=== PATIENT | female | born 1985 | race African-American/Black ===

== ENCOUNTER 2020-03-17 17:26 | Emergency (ER) | payer OTHER, SELFPAY ==
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
[2020-03-17 17:46] VITALS: BP 129/87; PULSE 72; RESP 18; TEMP 36.3; O2SAT 99
[2020-03-17] MEDS: KETOROLAC (*BKC) 60 MG/2 ML VIAL IM (18:46)
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
== END 2020-03-17 20:05 | disposition home or self-care (01) ==
PROVIDERS: Emergency Provider Emergency Medicine
DX: S16.1XXA Strain of muscle, fascia and tendon at neck level, initial encounter (principal); V43.62XA Car passenger injured in collision with other type car in traffic accident, initial encounter; J45.909 Unspecified asthma, uncomplicated
CPT/HCPCS: 72125; 73030; 96372; 99284; J1885

== ENCOUNTER 2020-10-25 14:29 | Emergency (ER) | payer SELFPAY ==
[2020-10-25 14:37] VITALS: BP 102/85; PULSE 70; RESP 16; TEMP 36.8; O2SAT 100
--- NOTE | 2020-10-25 15:04 | ED.URI ---
HPI - URI/Sore Throat General Chief Complaint: Upper Respiratory Infection Stated Complaint: allen/sinus issues/diarrhea History of Present Illness HPI Narrative: Patient is a 35-year-old female who presents complaining of sore throat, congestion, rhinorrhea, headache and ear pain. She reports doing rapid Covid at work and was negative at the time. Patient reports symptoms x1 day. Patient reports vaccinated x2 for Covid. She denies fever or body aches at this time. Patient denies significant medical history. MD elicited complaint: sore throat Related Data Allergies Allergy/AdvReac Type Severity Reaction Status Date / Time No Known Allergies Allergy Unknown Unverified 10/25/20 14:54 Review of Systems Review of Systems: CONSTITUTIONAL: Denies fever, chills, or sweats. EYES: Denies visual changes, redness, or discharge. ENT: Reports sore throat and congestion, rhinorrhea and otalgia CARDIOVASCULAR: Denies chest pain, palpitations, or edema. RESPIRATORY: Denies cough or dyspnea. GASTROINTESTINAL: Denies abdominal pain, nausea, vomiting, or diarrhea. GENITOURINARY: Denies dysuria or hematuria. SKIN: Denies rash or itching. MUSCULOSKELETAL: Denies back pain, joint pain, or myalgia. NEUROLOGIC: Reports headache, denies numbness, dizziness, or weakness. PSYCHIATRIC: Denies anxiety or depression. [facility] Past Medical History Medical History (Updated 10/25/20 @ 15:31 by CARMELLA Briseno) History of asthma Social History Social History (Updated 10/25/20 @ 15:57 by CARMELLA Briseno) Smoking status: Current some day smoker Alcohol intake: never Substance use: never Comments At the time of signature, I have reviewed and agree with nursing past medical, surgical, social, and family history unless otherwise noted. Please see nursing chart for further information. There is no relevant family history pertinent to the presenting complaint. Exam Narrative: GENERAL: Well-appearing, well-nourished, and in no acute distress. HEAD: Normocephalic, atraumatic. EYES: EOMI. No redness or drainage. Conjunctiva are normal. ENT: Mucous membranes pink and moist. Nares clear. No rhinorrhea. TMs normal bilaterally. Throat with moderate erythema and edema. Uvula midline. NECK: AROM. Supple. No lymphadenopathy. CHEST: No respiratory distress. HEART: Regular rate and rhythm. EXTREMITIES: Normal range of motion. No edema. SKIN: Warm, dry, no rash. NEURO: No focal deficits. Alert and oriented x3. Gait steady. PSYCH: Normal affect. No signs of depression or anxiety. Course Vital Signs Vital signs: Vital Signs Temperature 36.8 C 10/25/20 14:37 Pulse Rate 70 10/25/20 14:37 Respiratory Rate 16 10/25/20 14:37 Blood Pressure 102/85 10/25/20 14:37 Pulse Oximetry 100 10/25/20 14:37 Temperature 36.8 C 10/25/20 14:37 Pulse Rate 70 10/25/20 14:37 Respiratory Rate 16 10/25/20 14:37 Blood Pressure 102/85 10/25/20 14:37 Pulse Oximetry 100 10/25/20 14:37 Reviewed MDM - URI/Sore Throat MDM Narrative Medical decision making narrative: Patient's rapid strep is negative. Patient will decline PCR testing at this time. Discussed with patient most likely viral illness. Patient is stable for discharge to home with outpatient follow-up as needed. Differential Diagnosis Differential diagnosis: Likely upper respiratory infection, otitis media, sinusitis, viral infection, pharyngitis and other (Covid, tonsillitis) Critical Care Time Critical Care Time Critical Care Time: No Discharge Plan Discharge Clinical Impression: Pharyngitis Qualifiers: Pharyngitis/tonsillitis etiology: unspecified etiology Qualified Code(s): J02.9 - Acute pharyngitis, unspecified Patient Disposition: Home, Self-Care Condition: Stable Instructions: Pharyngitis (ED) Additional Instructions: Stay well-hydrated. Take Tylenol or ibuprofen for pain or fever. Take prednisone as directed. Warm salt water rinses. Foll
== END 2020-10-25 15:40 | disposition home or self-care (01) ==
PROVIDERS: Emergency Provider Nurse Practitioner
DX: J02.9 Acute pharyngitis, unspecified (principal); J45.909 Unspecified asthma, uncomplicated; F17.200 Nicotine dependence, unspecified, uncomplicated
CPT/HCPCS: 87081; 87880; 99213; G0463

== ENCOUNTER 2020-11-23 14:59 | Emergency (ER) | payer SELFPAY ==
[2020-11-23 15:22] VITALS: BP 115/82; PULSE 119; RESP 16; TEMP 36.7; O2SAT 98
[2020-11-23 15:38] LABS: Basophils Absolute Auto 0.1 K/mm3 (0.0-0.1); Basophils Percent Auto 0.8 % (0.2-1.2); Eosinophils Absolute Auto 0.2 K/mm3 (0-0.3); Hematocrit 36.5 % (37.0-47.0); Hemoglobin 12.5 g/dL (12.0-15.0); Immature Granulocyte Absolute 0.02 K/mm3 (0.00-0.031); Immature Granulocyte Percent A 0.3 % (0-0.5); Lymphocytes Absolute Auto 2.23 K/mm3 (0.9-3.2); Lymphocytes Percent Auto 30.3 % (18.3-44.2); Mean Corpuscular HGB Conc 34.2 g/dl (32-36); Mean Corpuscular Hemoglobin 30.7 pg (26-34); Mean Corpuscular Volume 89.7 fl (80-100); Mean Platelet Volume 11.5 fl (7.4-10.4); Monocytes Absolute Auto 0.4 K/mm3 (0.1-0.6); Neutrophils Absolute Auto 4.5 K/mm3 (1.3-6.7); Neutrophils Percent Auto 60.6 % (45.5-73.1); Platelet Count Result 206 k/mm3 (150-375); Red Blood Count 4.07 M/mm3 (4.2-5.4); White Blood Count 7.4 K/mm3 (4.5-10.0)
[2020-11-23 16:10] LABS: Alanine Aminotransferase 13 U/L (4-35); Albumin Level 4.3 g/dL (3.5-5.1); Alkaline Phosphatase 52 U/L (38-126); Anion Gap 3 mmol/L (8-16); Aspartate Amino Transferase 20 U/L (14-36); Bilirubin,Total 0.1 mg/dL (0.2-1.3); Blood Urea Nitrogen 14 mg/dL (7-17); Calcium 9.2 mg/dL (8.4-10.2); Carbon Dioxide 31 mmol/L (22-30); Chloride 104 mmol/L (98-107); Estimated CRCL calculation 75 ml/min; Estimated Glomerular Filt Rate > 60; Glucose 81 mg/dL (65-110); Lipase 57 U/L (23-300); Potassium 3.8 mmol/L (3.4-5.0); Sodium 138 mmol/L (137-145)
[2020-11-23 16:26] LABS: Add Urine Microscopic? YES; Appearance Urine Clear (Clear); Bacteria Urine Trace /hpf; Bilirubin Urine Negative (Negative); Blood Urine 3+ (Negative); Color Urine Straw (Yellow); Glucose Urine UA Negative (Negative); Ketones Urine Negative (Negative); Leukocyte Esterase Ur 3+ LEU/UL (Negative); Nitrate Urine Negative (Negative); Protein Urine Negative (Negative); Specific Grav Ur 1.012 (1.001-1.035); Squamous Epithelial Cell Urine Moderate /hpf (Few); Urobilinogen Urine Negative mg/dL (<2.0)
[2020-11-23 18:14] VITALS: BP 114/83; PULSE 76; RESP 14; O2SAT 98
[2020-11-23 19:25] VITALS: BP 124/89; PULSE 74; RESP 18; O2SAT 100
--- NOTE | 2020-11-23 19:25 | PC.NURSE ---
Assumed care of pt at this time time. Pt alert and upright on stretcher. Pt dissatisfied about wait time. Pt states if they didn't take my blood already out front, I would've gone to urgent care . This RN explained to pt about recent high pt loads and that pts are taken back to rooms based on acuity. This RN also informed pt that CASEY Tapia had signed up for her and would be in the room shorty to talk to pt. Pt verbalized understanding.
--- NOTE | 2020-11-23 19:52 | PC.NURSE ---
pt to us desk and verbalized that she is leaving and walked out. pt refused to stop and sign ama paperwork when nadine oneill attempted to stop her.
--- NOTE | 2020-11-23 22:35 | ED.GENADULT ---
HPI - General Adult General Chief complaint: Vaginal Bleeding <Fozia Rees PA-C - Last Filed: 11/23/20 22:38> Stated complaint: vag. bleeding <Fozia Rees PA-C - Last Filed: 11/23/20 22:38> Time Seen by Provider: 11/23/20 19:13 <Fozia Rees PA-C - Last Filed: 11/23/20 22:38> Source: patient <Fozia Rees PA-C - Last Filed: 11/23/20 22:38> Mode of arrival: ambulatory <Fozia Rees PA-C - Last Filed: 11/23/20 22:38> Limitations: no limitations <Fozia Rees PA-C - Last Filed: 11/23/20 22:38> History of Present Illness HPI narrative: Patient presents to emergency department complaining of swelling and discomfort to her vagina over the past 2 weeks. Patient has not seen her [employer]. Patient is not sure if she has concern for STDs. Patient reports Chlamydia in high school. Patient denies any fevers or chills. Patient reports having some nausea earlier today. Patient denies any vomiting. <Fozia Rees PA-C - Last Filed: 11/23/20 22:38> Related Data Allergies/adverse reactions: Allergies Allergy/AdvReac Type Severity Reaction Status Date / Time No Known Allergies Allergy Unknown Unverified 10/25/20 14:54 <Fozia Rees PA-C - Last Filed: 11/23/20 22:38> Review of Systems Review of Systems: CONSTITUTIONAL: Denies fever, chills, or sweats. EYES: Denies visual changes, redness, or discharge. ENT: Denies rhinorrhea, congestion, sore throat, or otalgia. CARDIOVASCULAR: Denies chest pain, palpitations, or edema. RESPIRATORY: Denies cough or dyspnea. GASTROINTESTINAL: Denies abdominal pain, nausea, vomiting, or diarrhea. GENITOURINARY: Reports vaginal complaint denies dysuria or hematuria. SKIN: Denies rash or itching. MUSCULOSKELETAL: Denies back pain, joint pain, or myalgia. NEUROLOGIC: Denies headache, numbness, dizziness, or weakness. PSYCHIATRIC: Denies anxiety or depression. <Fozia Rees PA-C - Last Filed: 11/23/20 22:38> [facility] Past Medical History Medical History: Medical History (Updated 11/24/20 @ 00:01 by Katherine Dove) History of asthma <Fozia Rees PA-C - Last Filed: 11/23/20 22:38> Social History Social History: Social History (Updated 10/25/20 @ 15:57 by Leti Mora [facility]) Smoking status: Current some day smoker Alcohol intake: never Substance use: never <Fozia Rees PA-C - Last Filed: 11/23/20 22:38> Exam Narrative: GENERAL: Well-appearing, well-nourished, and in no acute distress. HEAD: Normocephalic, atraumatic. EYES: PERRLA and EOMI. CHEST: Clear to auscultation. No respiratory distress. No wheezes rales or rhonchi HEART: Regular rate and rhythm. No murmur heard. Normal peripheral pulses. EXTREMITIES: Normal range of motion. No edema. SKIN: Warm, dry, no rash. NEURO: No focal deficits. Alert and oriented x3. PSYCH: Normal mood and affect. <Fozia Rees PA-C - Last Filed: 11/23/20 22:38> Course Vital Signs Vital signs: Vital Signs Temperature 36.7 C 11/23/20 15:22 Pulse Rate 119 H 11/23/20 15:22 Respiratory Rate 16 11/23/20 15:22 Blood Pressure 115/82 11/23/20 15:22 Pulse Oximetry 98 11/23/20 15:22 Temperature 36.7 C 11/23/20 15:22 Pulse Rate 74 11/23/20 19:25 Respiratory Rate 18 11/23/20 19:25 Blood Pressure 124/89 11/23/20 19:25 Pulse Oximetry 100 11/23/20 19:25 <Fozia Rees PA-C - Last Filed: 11/23/20 22:38> Medical Decision Making MDM Narrative Medical decision making narrative: Patient eloped ED before pelvic exam could be completed. Patient told nurse it was due to wait time. Patient refused to sign AMA forms. Not sure what patient diagnosis was. <Fozia Rees PA-C - Last Filed: 11/23/20 22:38> Vital Signs Vital Signs: Vital Signs Temperature 36.7 C 11/23/20 15:22 Pulse Rate 119 H 11/23/20 15:22 Respiratory Rate 16 11/23/20 15:22 Blood Pressure 115/82 11/23/20 15:22 Pulse Oximetry
== END 2020-11-23 19:56 | disposition left against medical advice (07) ==
PROVIDERS: Emergency Provider General Practice
DX: N76.0 Acute vaginitis (principal); J45.909 Unspecified asthma, uncomplicated
CPT/HCPCS: 36415; 80053; 81001; 81025; 83690; 85025; 87077; 87086; 87088; 99284

== ENCOUNTER 2021-08-12 08:08 | Emergency (ER) | payer SELFPAY ==
[2021-08-12 08:14] VITALS: BP 114/73; PULSE 83; RESP 16; TEMP 36.6; O2SAT 100
[2021-08-12 09:17] LABS: Influenza A QL RT-PCR Negative (Negative); Influenza B QL RT-PCR Negative (Negative); SARS-CoV-2 RNA PCR Negative
--- NOTE | 2021-08-12 10:23 | ED.URI ---
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 Patient woke up this morning with sore throat, body aches, nasal congestion, postnasal discharge, headache, coughing. Related Data Allergies Allergy/AdvReac Type Severity Reaction Status Date / Time No Known Allergies Allergy Unknown Verified 08/12/21 08:12 Review of Systems Review of Systems: All systems reviewed & are unremarkable except as noted in HPI and below PMFSH Past Medical History Medical History History of asthma Social History Social History Smoking status: Current some day smoker Alcohol intake: never Substance use: never Exam Narrative: General appearance: Well-developed, well-nourished, does not look in pain or distress, intermittent coughing, no significant other at the bedside Skin: Normal color Eyes: Clear conjunctiva ENT: Oropharynx normal Neck: nontender Chest and respiratory: Airway patent, no respiratory distress, no accessory muscle use Heart: Regular rate/rhythm Neurologic: Alert and oriented ?3, Course Course Emergency Course: Work-up showed that the patient is negative for COVID and influenza. Upper respiratory viral infection is my diagnosis, discharged on Atrovent nasal spray and Tessalon, and to be off work for the next 2 days. Vital Signs Vital signs: Vital Signs Temperature 36.6 C 08/12/21 08:14 Pulse Rate 83 08/12/21 08:14 Respiratory Rate 16 08/12/21 08:14 Blood Pressure 114/73 08/12/21 08:14 Pulse Oximetry 100 08/12/21 08:14 Temperature 36.6 C 08/12/21 08:14 Pulse Rate 83 08/12/21 08:14 Respiratory Rate 16 08/12/21 08:14 Blood Pressure 114/73 08/12/21 08:14 Pulse Oximetry 100 08/12/21 08:14 MDM - URI/Sore Throat Lab Data Labs: Lab Results 08/12/21 Range/Units 08:30 Influenza A (RT-PCR) Negative (Negative) Influenza B (RT-PCR) Negative (Negative) SARS-CoV-2 RNA (RT-PCR) Negative Critical Care Time Critical Care Time Critical Care Time: No Discharge Plan Discharge Clinical Impression: Upper respiratory infection Patient Disposition: Home, Self-Care Condition: Stable Instructions: Antibiotic Form, Cold Symptoms (ED) Additional Instructions: Return if symptoms are worsening , call your family physician for appointment, take Tylenol, ibuprofen as as needed for aches and pain, continue home medications. Prescriptions: New benzonatate 200 mg capsule 200 mg PO TID PRN (Reason: cough) Qty: 30 0RF Atrovent HFA 17 mcg/actuation HFA aerosol inhaler 2 puff inhalation QID 7 Days Qty: 12.9 0RF No Action prednisone 20 mg tablet 40 mg PO DAILY 5 Days Qty: 10 0RF Follow-up/Referrals: PHYSICIAN,BIOMETRIC SCREENER [Primary Care Provider] - Justyn Zamora MD [Physician] - 08/15/21 Stand Alone Forms: Work/School Release IP
[2021-08-12 11:13] VITALS: PULSE 67; RESP 18; O2SAT 98
== END 2021-08-12 11:18 | disposition home or self-care (01) ==
PROVIDERS: Emergency Provider Emergency Medicine
DX: J06.9 Acute upper respiratory infection, unspecified (principal); F17.210 Nicotine dependence, cigarettes, uncomplicated; Z20.822 Contact with and (suspected) exposure to COVID-19
CPT/HCPCS: 87502; 99283; C9803; U0003; U0005

== ENCOUNTER 2021-12-03 15:01 | Emergency (ER) | payer SELFPAY ==
[2021-12-03 15:12] VITALS: BP 121/81; PULSE 88; RESP 16; TEMP 36.7; O2SAT 99
--- NOTE | 2021-12-03 15:33 | ED.GENADULT ---
HPI - General Adult General Chief complaint: Nausea/Vomiting/Diarrhea Stated complaint: n/v/d Time Seen by Provider: 12/03/21 15:33 Source: patient Mode of arrival: ambulatory Limitations: no limitations History of Present Illness HPI narrative: 36-year-old female patient presents to the [facility] with complaints of headache, nausea, vomiting and diarrhea. Patient states she has had chills and just overall not feeling well. Patient states symptoms abruptly started today. Patient denies getting any flu or COVID shot. Patient denies chances of being . Patient denies any fevers that she is aware of. Related Data Allergies Allergy/AdvReac Type Severity Reaction Status Date / Time No Known Allergies Allergy Unknown Verified 12/03/21 15:11 Review of Systems Review of Systems: CONSTITUTIONAL: Positive fever, chills, denies sweats. EYES: Denies visual changes, redness, or discharge. ENT: Positive rhinorrhea, congestion, denies sore throat, or otalgia. CARDIOVASCULAR: Denies chest pain, palpitations, or edema. RESPIRATORY: Denies cough or dyspnea. GASTROINTESTINAL: Denies abdominal pain, positive nausea, vomiting, or diarrhea. GENITOURINARY: Denies dysuria or hematuria. SKIN: Denies rash or itching. MUSCULOSKELETAL: Denies back pain, joint pain, or myalgia. NEUROLOGIC: Positive headache, numbness, or weakness. PSYCHIATRIC: Denies anxiety or depression. [facility] Past Medical History Medical History History of asthma Social History Social History Smoking status: Current some day smoker Alcohol intake: never Substance use: never Comments At the time of my signature I agree with nursing past medical history, surgical, social, and family history. There is no relevant family history pertinent to the presenting complaint. Exam Narrative: GENERAL: Well-appearing, well-nourished, and in no acute distress. HEAD: Normocephalic, atraumatic. EYES: PERRLA and EOMI. ENT: Nares clear, no rhinorrhea or epistaxis. Mucous membranes moist. Posterior pharynx with no erythema, tonsillar joint, exudates or lesions present. Bilateral TMs are clear with no erythema or foreign bodies in the canal. NECK: Supple. No lymphadenopathy CHEST: Clear to auscultation. No respiratory distress. Patient able to talk in clear complete sentences. HEART: Regular rate and rhythm. No murmur heard. Normal peripheral pulses. ABDOMEN: Soft, nontender, nondistended, normal active bowel sounds. EXTREMITIES: Normal range of motion. No edema. SKIN: Warm, dry, no rash. NEURO: No focal deficits. Alert and oriented x3. Course Course Level of Care: Express Care Visit Vital Signs Vital signs: Vital Signs Temperature 36.7 C 12/03/21 15:12 Pulse Rate 88 12/03/21 15:12 Respiratory Rate 16 12/03/21 15:12 Blood Pressure 121/81 12/03/21 15:12 Pulse Oximetry 99 12/03/21 15:12 Oxygen Delivery Room Air 12/03/21 15:12 Temperature 36.7 C 12/03/21 15:12 Pulse Rate 88 12/03/21 15:12 Respiratory Rate 16 12/03/21 15:12 Blood Pressure 121/81 12/03/21 15:12 Pulse Oximetry 99 12/03/21 15:12 Oxygen Delivery Room Air 12/03/21 15:12 Vital signs reviewed Medical Decision Making MDM Narrative Medical decision making narrative: Discussed with patient that she is positive for influenza A. Discussed with patient our plan of care today is to offer Tamiflu. Discussed with patient the risk versus benefit patient has decided to take the Tamiflu today. We will also give her a dose of Zofran prior to leaving to help with nausea and vomiting as well as give her a prescription for the Zofran to take home. Discussed with patient I will write her off work for the next 3 days she can return to work as long as she has been fever free for 24 hours. Patient verbalized understanding denies any other questions or concerns at this time. Danielle
[2021-12-03] MEDS: ONDANSETRON HCL ODT 4 MG TABLET PO (15:49)
== END 2021-12-03 15:53 | disposition home or self-care (01) ==
PROVIDERS: Emergency Provider Nurse Practitioner Family
DX: J10.1 Influenza due to other identified influenza virus with other respiratory manifestations (principal); K52.9 Noninfective gastroenteritis and colitis, unspecified; Z20.822 Contact with and (suspected) exposure to COVID-19
CPT/HCPCS: 87426; 87804; 99213; A9270; C9803; G0463

== ENCOUNTER 2022-10-04 11:32 | Emergency (ER) | payer BC, SELFPAY ==
--- NOTE | ~2022-10-04 | CT_ITS ---
EXAMINATION: CT abdomen pelvis w con DATE: 10/04/2022 13:59 INDICATION: Diffuse abdominal pain. Nausea and vomiting. TECHNIQUE: Computed tomography (CT) of the abdomen and pelvis was performed with 100 cc Omnipaque 350 intravenous contrast. The dose-length product was 420.46 mGy-cm. Automated exposure control and iter ative reconstruction technique were employed. COMPARISON: None. FINDINGS: There is a 1.9 x 1.3 cm cystic lesion left posterior aspect of the vaginal introitus which may represent abscess or complicated Bartholin cyst. Dependent atelectasis. Heart size normal. No significant pleural or pericardial effusion. There is a left renal cyst with layering milk of calcium measuring 1.7 cm. Gallbladder is present. The liver, sp gabriella, pancreas, adrenal glands and right kidney are unremarkable. No hydronephrosis. Nonobstructive b owel gas pattern. Bladder is decompressed limiting evaluation for wall thickening. Follicular changes of the right ovary are noted. No free fluid or free air. No significant vascular abnormality. No lym phadenopathy. No acute osseous abnormality. IMPRESSION: 1. 1.9 x 1.3 cm cystic lesion left posterior aspect of the vaginal introitus which may represent absc ess or complicated Bartholin cyst. Reviewed, dictated and finalized at location B. IMPRESSION: 1. 1.9 x 1.3 cm cystic lesion left posterior aspect of the vaginal introitus wh ich may represent abscess or complicated Bartholin cyst.
[2022-10-04 11:46] VITALS: BP 113/80; PULSE 96; RESP 16; TEMP 36.4; O2SAT 100
--- NOTE | 2022-10-04 13:06 | ED.SKABFB ---
HPI - Skin/Abscess/Foreign Bdy General Chief complaint: Skin/Abscess/Foreign Body Stated complaint: irritation/cyst? Time Seen by Provider: 10/04/22 12:02 Source: patient Mode of arrival: ambulatory Limitations: no limitations History of Present Illness HPI narrative: Patient is a 37 y/o female who presents to the ED with c/o vaginal irritation. Patient reports she noticed some discomfort with wiping after urination last night. Today, the discomfort was more prominent, worse around her vaginal opening. She states she looked with a mirror and noticed a bulge on the left side. She then presented here. Patient denies dysuria or hematuria. Denies abnormal vaginal bleeding or vaginal discharge. Denies concern for STIs. She did report having abdominal pain last night with nausea and vomiting. Reports mild persistent nausea, but denies further pain at this time. Denies diarrhea, constipation, fevers. Related Data Allergies Allergy/AdvReac Type Severity Reaction Status Date / Time No Known Allergies Allergy Unknown Verified 10/04/22 12:04 Review of Systems Review of Systems: CONSTITUTIONAL: Denies fever, chills, or sweats. CARDIOVASCULAR: Denies chest pain. RESPIRATORY: Denies dyspnea. GASTROINTESTINAL: See HPI. GENITOURINARY: See HPI. SKIN: Denies rash or itching. MUSCULOSKELETAL: Denies back pain, joint pain, or myalgia. NEUROLOGIC: Denies headache, numbness, or weakness. All systems reviewed & are unremarkable except as noted in HPI and below PMFSH Past Medical History Medical History History of asthma Social History Social History Smoking status: Current some day smoker Alcohol intake: never Substance use: never Exam Narrative: GENERAL: Well appearing, well-nourished, non-toxic, in no acute distress. HEAD: Normocephalic, atraumatic. NECK: Supple. No adenopathy, no masses. RESPIRATORY: Airway patent, respirations nonlabored. Clear to auscultation bilaterally, no rales, rhonchi, wheezing. CARDIOVASCULAR: Regular rate and rhythm without murmurs, rubs, or gallops. Radial pulses 2+ and equal bilaterally. ABDOMINAL: Soft, diffuse nonspecific tenderness to palpation, nondistended, no hepatosplenomegaly. Normoactive BS. GENITAL: Normal external genitalia. No abnormal bleeding or discharge. Tenderness along lower vaginal introitus, worse on left, small amount of bulging in area of Bartholin's gland on left side. MUSCULOSKELETAL: Moves all extremities. Strength/ROM intact without gross deformities. SKIN: Warm, dry, normal color. No rashes. NEURO: A&O X3. Speech clear. Cranial nerves II-XII grossly intact. Steady gait. No ataxic movements. PSYCHIATRIC: Appropriate mood and affect. Normal interaction. Course Vital Signs Vital signs: Vital Signs Temperature 97.6 F 10/04/22 11:46 Pulse Rate 96 10/04/22 11:46 Respiratory Rate 16 10/04/22 11:46 Blood Pressure 113/80 10/04/22 11:46 Pulse Oximetry 100 10/04/22 11:46 Oxygen Delivery Room Air 10/04/22 11:46 Temperature 97.6 F 10/04/22 11:46 Pulse Rate 91 10/04/22 15:43 Respiratory Rate 18 10/04/22 15:43 Blood Pressure 110/78 10/04/22 15:43 Pulse Oximetry 100 10/04/22 15:43 Oxygen Delivery Room Air 10/04/22 11:46 Procedures Abscess I/D bartholin's gland: Date of Incision: 10/04/22 Time of Incision: 15:40 Side (if applicable): left Sedation/analgesia: none Local Anesthetic: lidocaine 1% Amount of anesthesia used (mL): 4 Technique: incised with #11 blade and probed loculations Amount of fluid expressed (mL): 3 Irrigation: Yes Packing used?: none I&D Results: Pus and Blood Complications: other (none) MDM - Skin/Abscess/Foreign Bdy MDM Narrative Medical decision making narrative: Patient presented to ED with report of
[2022-10-04 13:14] VITALS: BP 112/70; PULSE 78; RESP 18; O2SAT 98
[2022-10-04 13:33] LABS: Basophils Absolute Auto 0.1 K/mm3 (0.0-0.1); Basophils Percent Auto 0.7 % (0.2-1.2); Eosinophils Absolute Auto 0.1 K/mm3 (0-0.3); Eosinophils Percent Auto 1.4 % (0-4.4); Hemoglobin 13.5 g/dL (12.0-15.0); Immature Granulocyte Absolute 0.03 K/mm3 (0.00-0.031); Immature Granulocyte Percent A 0.4 % (0-0.5); Lymphocytes Absolute Auto 1.93 K/mm3 (0.9-3.2); Lymphocytes Percent Auto 25.2 % (18.3-44.2); Mean Corpuscular HGB Conc 33.8 g/dl (32-36); Mean Corpuscular Hemoglobin 30.3 pg (26-34); Mean Corpuscular Volume 89.9 fl (80-100); Mean Platelet Volume 12.1 fl (7.4-10.4); Monocytes Absolute Auto 0.3 K/mm3 (0.1-0.6); Monocytes Percent Auto 4.2 % (2.6-8.5); Neutrophils Absolute Auto 5.2 K/mm3 (1.3-6.7); Neutrophils Percent Auto 68.1 % (45.5-73.1); Platelet Count Result 229 k/mm3 (150-375); Red Blood Count 4.45 M/mm3 (4.2-5.4); Red Cell Distribution Width 14.1 % (11.5-14.5); White Blood Count 7.7 K/mm3 (4.5-10.0)
[2022-10-04 13:34] LABS: Appearance Urine Clear (Clear); Bilirubin Urine Negative (Negative); Blood Urine Negative (Negative); Color Urine Yellow (Yellow); Glucose Urine UA Negative (Negative); Ketones Urine Negative (Negative); Leukocyte Esterase Ur Negative LEU/UL (Negative); Nitrate Urine Negative (Negative); Protein Urine Negative (Negative); Urobilinogen Urine 0.2 mg/dL (<2.0)
[2022-10-04 13:35] LABS: Add Urine Microscopic? NO
[2022-10-04 13:42] LABS: Alanine Aminotransferase 18 U/L (6-35); Albumin Level 4.3 g/dL (3.5-5.1); Alkaline Phosphatase 54 U/L (38-126); Anion Gap 5 mmol/L (8-16); Aspartate Amino Transferase 23 U/L (14-36); Bilirubin,Total 0.5 mg/dL (0.2-1.3); Blood Urea Nitrogen 11 mg/dL (7-17); Calcium 8.9 mg/dL (8.4-10.2); Carbon Dioxide 26 mmol/L (22-30); Chloride 107 mmol/L (98-107); Estimated CRCL calculation 96 ml/min; Estimated Glomerular Filt Rate > 60; Glucose 91 mg/dL (65-110); Sodium 138 mmol/L (137-145)
[2022-10-04 15:43] VITALS: BP 110/78; PULSE 91; RESP 18; O2SAT 100
== END 2022-10-04 16:14 | disposition home or self-care (01) ==
PROVIDERS: Emergency Provider Physician Assistant
DX: N75.1 Abscess of Bartholin's gland (principal); J45.909 Unspecified asthma, uncomplicated; F17.200 Nicotine dependence, unspecified, uncomplicated
CPT/HCPCS: 36415; 56420; 74177; 80053; 81003; 81025; 85025; 87070; 87147; 87205; 99284; Q9967

== ENCOUNTER 2023-04-04 12:16 | Emergency (ER) | payer BC, SELFPAY ==
[2023-04-04 12:18] VITALS: BP 125/84; PULSE 89; RESP 16; TEMP 37.2; O2SAT 100
[2023-04-04] MEDS: SODIUM CHLORIDE 0.9% IV 1,000 ML 999 ML IV CONT (14:03)
[2023-04-04] MEDS: ONDANSETRON INJ 4 MG/2 ML VIAL IV PUSH (14:03)
[2023-04-04] MEDS: KETOROLAC 30 MG/ML VIAL (*BKC) IV PUSH (14:03)
[2023-04-04 14:34] LABS: Influenza A QL RT-PCR Negative (Negative); Influenza B QL RT-PCR Negative (Negative); RSV RNA, RT-PCR Negative (Negative); SARS-CoV-2 RNA PCR Negative (Negative)
--- NOTE | 2023-04-04 15:07 | ED.GENADULT ---
HPI - General Adult General Chief complaint: Head Injury Stated complaint: migraine x3 days Time Seen by Provider: 04/04/23 13:05 History of Present Illness HPI narrative: patient is a 37-year-old female who presents ER with headache. Five days ago she struck her head against a first-aid kit on a wall. No LOC. She has developed progressive headache since then. She is having mild nausea. Reports fatigue. She is at work and was feeling worse so she was sent in to be seen. No fevers or chills or sweats. She does report mildly elevated temperature on arrival. No body aches. Related Data Allergies Allergy/AdvReac Type Severity Reaction Status Date / Time No Known Allergies Allergy Unknown Verified 04/04/23 13:03 Review of Systems Review of Systems: All systems reviewed & are unremarkable except as noted in HPI and below Constitutional: Constitutional: Denies chills, Reports fatigue and Denies fever(s) Eyes: Eyes: Denies change in vision and Denies photophobia ENT: Reports system reviewed and no additional complaints, except as documented Cardiovascular: Cardiovascular: Reports no additional cardiovascular complaints Respiratory: Respiratory: Reports no additional respiratory complaints Gastrointestinal: Gastrointestinal: Denies abdominal pain, Reports nausea and Denies vomiting Neurologic: Reports headache(s), Denies focal weakness and Denies numbness PMFSH Past Medical History Medical History Acne History of asthma Family History Family History (Updated 10/31/22 @ 14:59 by Renee Shin MA) Other Diabetes mellitus Social History Social History (Updated 10/31/22 @ 15:00 by Renee Shin MA) Years smoked: 1 Smoking status: Current some day smoker Tobacco type: cigarettes Alcohol intake: current Substance use: never Lack of Transportation: No Lack of Food: Never True Current Housing: I Have Housing Concerned About Future Housing: No Difficulty Paying Gas/Electric Bills: No Difficulty Paying for Meds: No Currently Unemployed: No Education: High School Diploma/GED Difficulty w/ Childcare or Family Care: No Living arrangements: with family Occupation/Education: occupation Gender identity (if verbalized by the patient): Female Sexual Orientation (if Verbalized by the Patient): Straight or Heterosexual Exam Narrative: GENERAL: Well-appearing, well-nourished, and in no acute distress. HEAD: Normocephalic, atraumatic. EYES: PERRL and EOMI. ENT: Mucous membranes moist. NECK: Supple. CHEST: Clear to auscultation. No respiratory distress. HEART: Regular rate and rhythm. Normal peripheral pulses. EXTREMITIES: Normal range of motion. No edema. NEURO: Alert and oriented x3. PSYCH: Normal mood and affect. Course Course Emergency Course: patient felt to have a concussion. Viral swab negative. Patient treated with fluids/Zofran/ Toradol and feels improved. Vital Signs Vital signs: Vital Signs Temperature 99 F 04/04/23 12:18 Pulse Rate 89 04/04/23 12:18 Respiratory Rate 16 04/04/23 12:18 Blood Pressure 125/84 04/04/23 12:18 Pulse Oximetry 100 04/04/23 12:18 Oxygen Delivery Room Air 04/04/23 12:18 Temperature 99 F 04/04/23 12:18 Pulse Rate 89 04/04/23 12:18 Respiratory Rate 16 04/04/23 12:18 Blood Pressure 125/84 04/04/23 12:18 Pulse Oximetry 100 04/04/23 12:18 Oxygen Delivery Room Air 04/04/23 12:18 Medical Decision Making Vital Signs Vital Signs: Vital Signs Temperature 99 F 04/04/23 12:18 Pulse Rate 89 04/04/23 12:18 Respiratory Rate 16 04/04/23 12:18 Blood Pressure 125/84 04/04/23 12:18 Pulse Oximetry 100 04/04/23 12:18 Oxygen Delivery Room Air 04/04/23 12:18 Temperature 99 F 04/04/23 12:18 Pulse Rate 89 04/04/23 12:18 Respiratory Rate 16 04/04/23 12:18 Blood Pressure 125/84 04/04/23 12:18 Pulse Oxime
== END 2023-04-04 15:58 | disposition home or self-care (01) ==
PROVIDERS: Emergency Provider Emergency Medicine
DX: S09.90XA Unspecified injury of head, initial encounter (principal); Z20.822 Contact with and (suspected) exposure to COVID-19; F17.210 Nicotine dependence, cigarettes, uncomplicated; W22.09XA Striking against other stationary object, initial encounter
CPT/HCPCS: 87637; 96361; 96374; 96375; 99284; J1885; J2405; J7030

== ENCOUNTER 2024-04-02 11:11 | Emergency (ER) | payer BC, SELFPAY ==
[2024-04-02 11:23] VITALS: BP 111/63; PULSE 90; RESP 18; TEMP 36.6; O2SAT 100
--- NOTE | 2024-04-02 11:35 | ED.URI ---
HPI - URI/Sore Throat General Chief Complaint: Upper Respiratory Infection Stated Complaint: FEVER/CONGESTION/BODY ACHES Time Seen by Provider: 04/02/24 11:36 Source: patient Mode of arrival: ambulatory Limitations: no limitations History of Present Illness HPI Narrative: 38-year-old female presents with complaint of fatigue, body aches, fever, cough, congestion for 3 days. Denies nausea vomiting diarrhea. Patient reports fever this morning. Sent home from work. Has been taking Mucinex day and night for symptoms. All systems reviewed and negative except as noted above. Related Data Home Medications ?Medication ?Instructions ?Recorded ?Confirmed ?Last Taken ?Type No Home Medications 04/02/24 04/02/24 Unknown History Allergies Allergy/AdvReac Type Severity Reaction Status Date / Time No Known Allergies Allergy Unknown Verified 04/02/24 11:27 Review of Systems Review of Systems: CONSTITUTIONAL: Reports fever, chills, or sweats. EYES: Denies visual changes, redness, or discharge. ENT: Reports rhinorrhea, congestion. Denies sore throat, or otalgia. CARDIOVASCULAR: Denies chest pain, palpitations, or edema. RESPIRATORY: Reports cough. Denies dyspnea. GASTROINTESTINAL: Denies abdominal pain, nausea, vomiting, or diarrhea. GENITOURINARY: Denies dysuria or hematuria. SKIN: Denies rash or itching. MUSCULOSKELETAL: Denies back pain, joint pain, or myalgia. NEUROLOGIC: Denies headache, numbness, or weakness. PSYCHIATRIC: Denies anxiety or depression. All other systems reviewed are negative, except as documented in HPI. [facility] Past Medical History Medical History Acne History of asthma Family History Family History (Updated 10/31/22 @ 14:59 by Renee Shin MA) Other Diabetes mellitus Social History Social History (Updated 10/31/22 @ 15:00 by Renee Shin MA) Years smoked: 1 Smoking status: Current some day smoker Tobacco type: cigarettes Alcohol intake: current Substance use: never Lack of Transportation: No Lack of Food: Never True Current Housing: I Have Housing Concerned About Future Housing: No Difficulty Paying Gas/Electric Bills: No Difficulty Paying for Meds: No Currently Unemployed: No Education: High School Diploma/GED Difficulty w/ Childcare or Family Care: No Living arrangements: with family Occupation/Education: occupation Gender identity (if verbalized by the patient): Female Sexual Orientation (if Verbalized by the Patient): Straight or Heterosexual Comments At time of signature, agree with nursing past medical, surgical, social and family history. There is no relevant family history pertinent to the presenting complaint. Exam Narrative: GENERAL: This is a well-nourished, well-developed patient, ill-appearing but in no acute distress HEAD: normocephalic, atraumatic. EYES: PERRL. Sclera clear/white. Vision is grossly intact. EARS: External ears normal, auditory canals clear and without drainage, TMs normal without perforation. Hearing grossly intact. NOSE: External nose normal with mild congestion, clear nasal drainage, erythema to bilateral nares THROAT: Mucous membranes moist, posterior pharynx clear. NECK: Neck supple, non-tender without lymphadenopathy, masses or thyromegaly. CARDIOVASCULAR: Regular rate and rhythm without murmurs, gallops, or rubs. RESPIRATORY: Clear to auscultation. Breath sounds equal bilaterally. No wheezes, rales, or rhonchi. SKIN: warm, Dry, intact with no suspicious lesions or rash, good texture and turgor. NEURO: awake, alert, and oriented to person, place and time. There were no obvious focal neurologic abnormalities. EXTREMITIES: No joint tenderness, effusion, or edema noted. Course Course Level of Care: Express Care Visit Vital Signs Vital signs: Vital Signs Temperature 36.6 C 04/02/24 11:23 Pulse Rate 90 04/02/24 11:23 Respiratory Rate 18 04/02/24 11:23 Blood Pressure 111/63 04/02/24 11:23 Pulse Oximetry 100 04/02/24 11:23 Temperature 36.6 C 04/02/24 11:23 Pulse Rate 90 04/02/24 11:23 Respiratory Rate 18 04/02/24 11:23 Blood Pressure 111/63 04/02/24 11:23 Pulse Oximetry 100 04/02/24 11:23 Reviewed MDM - URI/Sore Throat MDM Narrative Medical decision making narrative: Patient positive for influenza. Recommend continuing pakr-[id number] medications to treat symptoms. Patient is alert, nontoxic, hemodynamically stable. Please be advised this is a medical document. It is intended for brsk-in-ahxk communication. It is written in medical language and may contain unfamiliar abbreviations or verbiage. Medical documents are intended to carry relevant information, facts as evident, and the clinical opinion of the practitioner at the time of the encounter. This report may have been done utilizing a voice recognition system. Attempts have been made to correct errors. However, there may be uncorrected grammatical, spelling, and recognition errors present. The file time of this note does not necessarily represent the time of service. Differential Diagnosis Differential diagnosis: Likely upper respiratory infection, sinusitis, viral infection, influenza and pharyngitis Lab Data Labs: Lab Results 04/02/24 Range/Units 11:33 POC Influenza A Ag Positive (Negative) POC Influenza B Ag Negative (Negative) POC Grp A Strep Screen Negative (Negative) Discharge Plan Discharge Clinical Impression: Influenza A Patient Disposition: Home, Self-Care Condition: Stable Instructions: Influenza (ED) Additional Instructions: Your influenza test was positive today. Influenza is a virus and symptoms may last 10-14 days. Continue taking [id number] Mucinex day and night as directed on packaging. Take ibuprofen every 6-8 hours as needed for pain and fever. Drink at least 64 oz of water a day. Follow-up with your doctor if symptoms are not improving. Patient Language: Portuguese Prescriptions: No Action No Home Medications Follow-up/Referrals: PHYSICIAN,DIRECTOR OF PUBLIC SAFETY [Primary Care Provider] - Stand Alone Forms: Work/School Release IP Time of Disposition: 11:41
[2024-04-02 11:36] LABS: EDINFLUASCREEN Positive (Negative); EDINFLUBSCREEN Negative (Negative); EDSTREPNEGPOS1 Negative (Negative)
== END 2024-04-02 11:43 | disposition home or self-care (01) ==
PROVIDERS: Emergency Provider Nurse Practitioner Family
DX: J10.1 Influenza due to other identified influenza virus with other respiratory manifestations (principal); F17.210 Nicotine dependence, cigarettes, uncomplicated; J45.909 Unspecified asthma, uncomplicated
CPT/HCPCS: 87081; 87804; 87880; 99213; G0463

== ENCOUNTER 2025-01-01 07:11 | Emergency (ER) | payer MEDICAID, SELFPAY ==
--- OUTSIDE RECORDS SUMMARY | 2025-01-01 07:13 | XMS_ITS | Clinical Summary ---
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 Gender Identity Not on file Sexual Orientation Not on file Plan of Treatment Health Maintenance Due Date Last Done Comments Hepatitis C Virus (HCV) Screening 1987 TdaP Immunization 1987 Varicella Immunization (1 of 2 - 13+ 2-dose series) 06/08/2000 Hepatitis B Immunization (1 of 3 - 19+ 3-dose series) 06/08/2006 Pap Smear 06/08/2008 Human Papillomavirus (HPV) Immunization (1 - 3-dose SCDM series) 06/08/2014 Cervical Cancer Screening (CCS) 06/08/2017 HPV/Cotest 06/08/2017 Influenza Immunization (#1) 2024 SARS-COV-2 Immunization ( season) 2024 Respiratory Syncytial Virus (RSV) Immunization (Adult) (1 - 1-dose 75+ series) 06/08/2062 DTaP/Tdap/Td Immunization Discontinued 10/01/2001 Meningococcal Immunization (ACWY) Aged Out No longer eligible based on patient's age to complete this topic Pneumococcal Immunization Combined Aged Out No longer eligible based on patient's age to complete this topic Rotavirus Immunization Aged Out No lo nger eligible based on patient's age to complete this topic
--- NOTE | 2025-01-01 07:14 | ED_ITS ---
HPI - URI/Sore Throat General Chief Complaint: Upper Respiratory Infection Stated Complaint: not feeling good' Time Seen by Provider: 01/01/25 07:13 Source: patient Mode of arrival: ambulatory Limitations: no limitations History of Present Illness HPI Narrative: body aches, chills, sore throat, runny nose, postnasal discharge started 24 hours ago. Works in a restaurant. Related Data Home Medications ?Medication ?Instructions ?Recorded ?Confirmed ?Last Taken ?Type No Home Medications 04/02/24 04/02/24 U nknown History Allergies Allergy/AdvReac Type Severity Reaction Status Date / Time No Known Allergies Allergy Unknown Verified 01/01/25 07:24 Review of Systems Review of Systems: All systems reviewed & are unremarkable except as noted in HPI and below PMFSH Past Medical History Medical History Acne History of asthma Family History Family History Other Diabetes mellitus Social History Social History Years smoked: 1 Smoking status: Current some day smoker Tobacco type: cigarettes Alcohol intake: current Substance use: never Lack of Transportation: No Lack of Food: Never True Current Housing: I Have Housing Concerned About Future Housing: No Difficulty Paying Gas/Electric Bills: No Difficulty Paying for Meds: No Currently Unemployed: No Education: High School Diploma/GED Difficulty w/ Childcare or Family Care: No Living arrangements: with family Occupation/Education: occupation Gender identity (if verbalized by the patient): Female Sexual Orientation (if Verbalized by the Patient): Straight or Heterosexual Exam Narrative: General appearance: Well-developed, well-nourished Skin: Normal color Head: Normocephalic, nontraumatic Eyes: Clear conjunctiva ENT: Extensive alba pharyngeal erythema, no discharge Neck: Supple, nontender Chest and respiratory: Airway patent, no respiratory distress, no accessory muscle use Heart: Regular rate/rhythm Abdomen: Soft, nontender, no organomegaly, quiet bowel sounds Vascular: Normal peripheral pulses, normal capillary refill. Musculoskeletal: Normal range of motion, nontender back Neurologic: Alert and oriented ?3, CAMERA ENGINEER is normal as tested, no gross motor deficit Course Vital Signs Vital signs: Vital Signs Temperature 36.8 C 11/20/25 07:15 Pulse Rate 83 01/01/25 07:15 Respiratory Rate 16 01/01/25 07:15 Blood Pressure 110/76 01/01/25 07:15 Pulse Oximetry 100 01/01/25 07:15 Oxygen Delivery Room Air 01/01/25 07:15 Temperature 36.8 C 01/01/25 07:15 Pulse Rate 68 01/01/25 08:47 Respiratory Rate 16 01/01/25 08:47 Blood Pressure 107/77 01/01/25 08:47 Pulse Oximetry 100 01/01/25 08:47 Oxygen Delivery Room Air 01/01/25 07:15 MDM - URI/Sore Throat MDM Narrative Medical decision making narrative: PATIENT PRESENTS WITH UPPER RESPIRATORY VIRAL INFECTION LIKE SYMPTOMS PATIENT TESTED NEGATIVE FOR COVID FLU RSV AND NEGATIVE FOR STREP THROAT DIAGNOSIS COMMON COLD SYMPTOMS DISCHARGED ON TYLENOL, IBUPROFEN AND [id number] COLD AND COUGH MEDICINE. THE PT WAS DISCHARGED TO HOME.THE PT,S CONDITION UPON DISCHARGE WAS FAIR,EDUCATION WAS PROVIDED TO THE PT IN REFERENCE TO THE FINAL IMPRESSION,DISCHARGE STUDY RESULTS,TREATMENT,PROGNOSIS AND NEED FOR FOLLOW UP . Differential Diagnosis Differential diagnosis: Likely other ( ABOVE) Lab Data Attestation: I reviewed the patient's lab results. Labs: Lab Results 01/01/25 Range/Units 07:20 Influenza A (RT-PCR) Negative (Negative) Influenza B (RT-PCR) Negative (Negative) RSV (RT-PCR) Negative (Negative) SARS-CoV-2 RNA (RT-PCR) Negative (Negative) Group A Strep (PCR) Not detected (Negative) Critical Care Time Critical Care Time Critical Care Time: No Discharge Plan Discharge Clinical Impression: Upper respiratory infection, viral Patient Disposition: Home Condition: Stable Instructions: Cold Symptoms (ED) Additional Instructions: Return if symptoms are worsening , call your family physician for appointment, take Tylenol, ibuprofen as as needed for aches and pain, continue home medications. [id number] cold and cough medicine Patient Language: Yakut Prescriptions: No Action No Home Medications Follow-up/Referrals: PHYSICIAN,CUSTOMER SUPPORT ENGINEER [Primary Care Provider, Internal Medicine] Stand Alone Forms: Work/School Release IP
[2025-01-01 07:15] VITALS: BP 110/76; PULSE 83; RESP 16; TEMP 36.8; O2SAT 100
[2025-01-01 08:05] LABS: Strep Group A RT-PCR NOT DETECTED (Negative)
[2025-01-01 08:17] LABS: Influenza A QL RT-PCR Negative (Negative); Influenza B QL RT-PCR Negative (Negative); RSV RNA, RT-PCR Negative (Negative); SARS-CoV-2 RNA PCR Negative (Negative)
[2025-01-01 08:47] VITALS: BP 107/77; PULSE 68; RESP 16; O2SAT 100
== END 2025-01-01 08:48 | disposition home or self-care (01) ==
PROVIDERS: Emergency Provider Emergency Medicine
DX: J06.9 Acute upper respiratory infection, unspecified (principal); Z72.0 Tobacco use; Z20.822 Contact with and (suspected) exposure to COVID-19
CPT/HCPCS: 87637; 87651; 99283